=== PATIENT | male | born 1940 | race Caucasian/White ===

== ENCOUNTER 2018-12-28 12:42 | Day surgery (SDC) | payer MEDICARE, OTHER ==
[~2018-12-28] VITALS: Ht 182.9 cm; Wt 95.6 kg
[~2018-12-28 12:42] MED LIST: ASCO500 PO; ASPI81CH PO; ATOR20; ATOR20 PO; B Complete1 EACH; CALCIUM 600 +1 EA11; CEFD300 PO; FISH1000 PO; HYDCHL25 PO; LOSA25 PO; MULTI VITAMIN1 EACH; SM NATURAL BAL100 MG; TOCO1000 PO; Zonegran100 MG PO
== END 2018-12-28 15:25 | disposition home or self-care (01) ==
LOC: ORSCSDS 12:42
PROVIDERS: Internal Medicine Gastroenterology
PROC: 0DBH8ZX Excision of Cecum, Via Natural or Artificial Opening Endoscopic, Diagnostic (ICD-10-PCS; principal; 2018-12-28 14:30)
PROC: 0DBN8ZX Excision of Sigmoid Colon, Via Natural or Artificial Opening Endoscopic, Diagnostic (ICD-10-PCS; principal; 2018-12-28 14:30)
DX: Z12.11 Encounter for screening for malignant neoplasm of colon (principal); D12.5 Benign neoplasm of sigmoid colon; K57.30 Diverticulosis of large intestine without perforation or abscess without bleeding; I10 Essential (primary) hypertension; G20 Parkinson's disease; Z86.010 Personal history of colon polyps; Z80.0 Family history of malignant neoplasm of digestive organs; Z87.891 Personal history of nicotine dependence; Z79.82 Long term (current) use of aspirin; Z79.899 Other long term (current) drug therapy
CPT/HCPCS: 88305; J2704; J7120

== ENCOUNTER → 2019-04-29 | Outpatient (CLI) | payer MEDICARE, OTHER | END | disposition home or self-care (01) | LOC: LAB SHORT 10:29 → PLD 10:29 | DX: D48.5 Neoplasm of uncertain behavior of skin (principal) | CPT/HCPCS: 88305 ==

== ENCOUNTER 2020-08-07 21:41 | Emergency (ER) | payer MEDICARE, OTHER ==
[~2020-08-07] VITALS: Ht 182.9 cm; Wt 108.9 kg
[2020-08-07] MEDS ORDERED: HYDR1TAB94 PO (22:14)
== END 2020-08-07 22:45 | disposition home or self-care (01) ==
LOC: ER 21:41
DX: S22.31XA Fracture of one rib, right side, initial encounter for closed fracture (principal); G20 Parkinson's disease; Z88.2 Allergy status to sulfonamides; Z88.8 Allergy status to other drugs, medicaments and biological substances; Z88.1 Allergy status to other antibiotic agents; Z79.82 Long term (current) use of aspirin; Z87.891 Personal history of nicotine dependence; Z79.899 Other long term (current) drug therapy; W01.0XXS Fall on same level from slipping, tripping and stumbling without subsequent striking against object, sequela
CPT/HCPCS: 71101; 99283-25; A9270

== ENCOUNTER → 2021-01-24 | Outpatient (CLI) | payer MEDICARE, OTHER ==
[~2021-01-24] MED LIST changes: +HYDR1TAB94 PO
== END | disposition home or self-care (01) ==
LOC: LAB 12:23 → LAB SHORT 12:23
DX: S91.109A Unspecified open wound of unspecified toe(s) without damage to nail, initial encounter (principal)
CPT/HCPCS: 87070; 87147; 87205

== ENCOUNTER 2021-02-19 00:54 | Day surgery (SDC) | payer MEDICARE, OTHER | END 2021-02-20 02:24 | disposition home or self-care (01) | LOC: WOUND 00:54 | DX: L89.899 Pressure ulcer of other site, unspecified stage (principal); S91.104D Unspecified open wound of right lesser toe(s) without damage to nail, subsequent encounter; X58.XXXD Exposure to other specified factors, subsequent encounter; I87.2 Venous insufficiency (chronic) (peripheral); I73.9 Peripheral vascular disease, unspecified | CPT/HCPCS: A9270; G0463 ==

== ENCOUNTER 2021-02-26 00:50 | Day surgery (SDC) | payer MEDICARE, OTHER | END 2021-02-26 23:39 | disposition home or self-care (01) | LOC: WOUND 00:50 | DX: L89.892 Pressure ulcer of other site, stage 2 (principal); I87.2 Venous insufficiency (chronic) (peripheral); I73.9 Peripheral vascular disease, unspecified; G20 Parkinson's disease; M79.89 Other specified soft tissue disorders; R93.6 Abnormal findings on diagnostic imaging of limbs | CPT/HCPCS: 93922; A9270; G0463 ==

== ENCOUNTER 2021-03-12 03:39 | Day surgery (SDC) | payer MEDICARE, OTHER | END 2021-03-12 23:00 | disposition home or self-care (01) | LOC: WOUND 03:39 | DX: S91.104D Unspecified open wound of right lesser toe(s) without damage to nail, subsequent encounter (principal); X58.XXXD Exposure to other specified factors, subsequent encounter; L89.899 Pressure ulcer of other site, unspecified stage; I87.2 Venous insufficiency (chronic) (peripheral); I73.9 Peripheral vascular disease, unspecified ==

== ENCOUNTER 2021-03-26 02:43 | Day surgery (SDC) | payer MEDICARE, OTHER | END 2021-03-26 23:48 | disposition home or self-care (01) | LOC: WOUND 02:43 | DX: L89.892 Pressure ulcer of other site, stage 2 (principal); S91.104D Unspecified open wound of right lesser toe(s) without damage to nail, subsequent encounter; X58.XXXD Exposure to other specified factors, subsequent encounter; I87.2 Venous insufficiency (chronic) (peripheral); I73.9 Peripheral vascular disease, unspecified | CPT/HCPCS: G0463 ==

== ENCOUNTER 2021-05-22 08:12 | Inpatient (IN) | payer MEDICARE, OTHER ==
[~2021-05-22] VITALS: Ht 180.3 cm; Wt 102.9 kg
[2021-05-22 08:44] LABS: BASOPHILS ABSOLUTE AUTO 0.01 K/mm3 (0.00-0.23); BASOPHILS PERCENT AUTO 1 % (0-2); Hematocrit 48.6 % (37.0-53.0); Hemoglobin 16.8 g/dL (13.5-17.5); Mean Corpuscular HGB 32.2 pg (26.0-34.0); Mean Corpuscular HGB Conc 34.6 g/dL (31.5-36.5); Mean Corpuscular Volume 93 fL (80-100); Mean Platelet Volume 9.8 fL (9.1-12.4); NEUTROPHILS PERCENT AUTO 48 % (41-73); Platelet Count 194 K/mm3 (150-400); RDW Standard Deviation 51.5 fL (35.1-46.3); Red Blood Cell Count 5.22 M/mm3 (4.30-5.90)
[2021-05-22 08:45] LABS: EOSINOPHILS PERCENT AUTO 0 % (0-6); IMMATURE GRAN ABSOLUTE AUTO 0.01 K/mm3 (0.00-0.10); IMMATURE GRAN PERCENT AUTO 1 % (0-1); LYMPHOCYTES ABSOLUTE AUTO 0.56 K/mm3 (0.84-5.20); LYMPHOCYTES PERCENT AUTO 47 % (21-46); MONOCYTES ABSOLUTE AUTO 0.05 K/mm3 (0.16-1.47); MONOCYTES PERCENT AUTO 4 % (4-13); NEUTROPHILS ABSOLUTE AUTO 0.57 K/mm3 (1.96-9.15)
[2021-05-22 08:51] LABS: PO2 Arterial 50.6 mmHg (80-100); pH Blood Arterial 7.44 (7.35-7.45)
[2021-05-22 09:06] LABS: Albumin, Blood 3.2 g/dL (3.4-5.0); Albumin/Globulin Ratio 0.8 (0.8-1.8); Bilirubin, Total 1.9 mg/dL (0.1-1.0); Bun/Creatinine Ratio 21.9 (12.0-20.0); Calcium, Blood 9.2 mg/dL (8.5-10.1); Creatinine, Blood 2.28 mg/dL (0.60-1.20); Potassium, Blood 3.7 mmol/L (3.5-5.5); Total Protein, Blood 7.2 g/dL (6.4-8.2); Troponin I 0.05 ng/mL (0.000-0.040)
[2021-05-22 09:25] LABS: Chloride (POC) 98 mmol/L (98-108); Creatinine (POC) 2.8 mg/dL (0.8-1.3); Glucose (ISTAT POC) 151 mg/dL (70-99); Potassium (POC) 3.9 mmol/L (3.5-5.5); Sodium (POC) 136 mmol/L (135-148); Total CO2 (POC) 25 mmol/L (21-32)
[2021-05-22 09:44] LABS: BASOPHILS PERCENT MAN 0 % (0-2)
[2021-05-22 09:48] LABS: EOSINOPHILS ABSOLUTE MAN 0.02 K/mm3 (0.00-0.68); EOSINOPHILS PERCENT MAN 2 % (0-6); LYMPHOCYTES ABSOLUTE MAN 0.64 K/mm3 (0.84-5.20); LYMPHOCYTES PERCENT MAN 54 % (21-46); MONOCYTES ABSOLUTE MAN 0.09 K/mm3 (0.16-1.47); MONOCYTES PERCENT MAN 8 % (4-13); SEG NEUTROPHILS PERCENT MAN 36 % (41-73); TOTAL CELLS COUNTED 50
[2021-05-22 09:50] LABS: NEUTROPHILS ABSOLUTE MAN 0.43 K/mm3 (1.96-9.15)
[2021-05-22 10:44] LABS: International Normalized Ratio 1.48; Prothrombin Time Results 15.6 Sec (9.7-11.5)
[2021-05-22 11:10] LABS: SARS-Cov-2 (COVID-19) PCR, MMC NEGATIVE (NEGATIVE)
[2021-05-22] MEDS ORDERED: KLOR-CON 1010 ME4 PO (11:36)
[2021-05-22] MEDS ORDERED: FUROSEMIDE40 MG PO (11:37)
[2021-05-22] MEDS ORDERED: ATORVASTATIN CA20 MG PO (11:37)
[2021-05-22] MEDS ORDERED: LOSARTAN POTASS25 M2 PO (11:37)
[2021-05-22] MEDS ORDERED: BUSPIRONE HCL7.5 M1 PO (11:37)
[2021-05-22] MEDS ORDERED: RYTARY ER 48.71 EAC1 PO (11:38)
[2021-05-22] MEDS ORDERED: Aspir 8181 MG PO (11:38)
[2021-05-22] MEDS ORDERED: Vitamin B Comple1 EA PO (11:38)
[2021-05-22 12:37] LABS: PCO2 Arterial 33.3 mmHg (35-45); pH Blood Arterial 7.41 (7.35-7.45)
[2021-05-22 13:11] LABS: Hematocrit 45.2 % (37.0-53.0); Hemoglobin 15.2 g/dL (13.5-17.5)
[2021-05-22 16:09] LABS: Hematocrit 39.4 % (37.0-53.0); Hemoglobin 13.6 g/dL (13.5-17.5)
[2021-05-22 18:58] LABS: Source, Urine Catheter
[2021-05-22 19:00] LABS: Bilirubin, Urine Neg (Neg); Blood, Urine 4+ (Neg); Glucose Qualitative, Urine 1+ (Neg); Ketones, Urine 1+ (Neg); Leukocyte Esterase, Urine Neg (Neg); Nitrite, Urine Neg (Neg); Protein, Urine 2+ (Neg); Specific Gravity, Urine 1.015 (1.003-1.022); Urobilinogen, Urine NORM (Normal)
[2021-05-22 19:01] LABS: Appearance, Urine Hazy (Clear); Color, Urine Yellow (P-Yellow)
[2021-05-22 19:06] LABS: Amorphous Mod (0-Heavy); Bacteria Few /hpf; Red Blood Cells, Urine 0-2 /hpf (0-2); Squamous Epithelial Cells Few /hpf (Few); White Blood Cells, Urine 0-2 /hpf (0-5)
[2021-05-22 19:07] LABS: Transitional Epithelial Cells Few /hpf (0-Rare)
--- NOTE | 2021-05-22 19:16 | NUR ---
SUMMARY PT INTUBATED AND SEDATED WITH PROPOFOL. PT WILL WITHDRAW FROM NOXIOUS STIMULUS AND MOVES EXTREMITIES WHEN SEDATION IS DOWN. PT HAS COFFEE GROUND FLUID COMING FROM OGT. DR. ISAAC CONSULTED AND WAS IN TO SEE PT WITH AT BEDSIDE. ON PROTONIX GTT AND SANDOSTATIN WAS D/C'D. ON LEVOPHED AND VASOPRESSIN FOR BLOOD PRESSURE SUPPORT. ON AMIO GTT. CONVERTED FROM AFIB THIS AFTERNOON. UPDATED THIS EVENING BY PALLIATIVE CARE RN.
[2021-05-22 22:55] LABS: Hematocrit 38.1 % (37.0-53.0); Hemoglobin 13.1 g/dL (13.5-17.5)
--- NOTE | 2021-05-22 23:45 | NUR ---
DOCTOR CHANCE NOTIFIED OF GRAM - BACILLI IN BLOOD CX, AND OF REPEAT LACTIC 5.3, AND REPEAT H&H. CONTINUE CURRENT ANTIBIOTICS AND GIVE ANOTHER LITER BOLUS OF NS.
[2021-05-23 05:01] LABS: Hematocrit 35.9 % (37.0-53.0)
[2021-05-23 05:33] LABS: Albumin, Blood 2.8 g/dL (3.4-5.0); Anion Gap 11 mmol/L (6-16); Blood Urea Nitrogen 51 mg/dL (8-24); Bun/Creatinine Ratio 30.4 (12.0-20.0); CO2, Blood 24 mmol/L (21-32); Calcium, Blood 7.9 mg/dL (8.5-10.1); Chloride, Blood 105 mmol/L (98-108); Creatinine, Blood 1.68 mg/dL (0.60-1.20); Glomerular Filtration Rate 40 (60-); Glucose, Blood 128 mg/dL (70-99); Phosphorus, Blood 4.8 mg/dL (2.5-4.9); Potassium, Blood 3.6 mmol/L (3.5-5.5); Sodium, Blood 140 mmol/L (136-145); Vancomycin, Random 11.1 ug/mL
--- NOTE | 2021-05-23 06:19 | NUR ---
SUMMARY PATIENT INTUBATED AND SEDATED WITH PROPOFOL 30 MCG. GRIMACE AND COUGH WITH STIMULI, SLIGHT MOVEMENT SEEN IN BOTH FEET, AND HANDS. BILAT WRIST RESTRAINTS IN PLACE TO PREVENT ACCIDENTAL SELF EXTUBATION. LUNG SOUNDS DECREASED IN THE BASES, SCANT AMT OF CLEAR SECRETIONS, ORAL VERY DRY. VENT AC 18, TV 450, PEEP 8, FIO2 40%. OG IN PLACE WITH APROX 100 CC OF DARK COFFEE GROUND LOOKING BILE, NIGHT PROGRESSED LOOKING MORE DARK GREEN. PROTONIX DRIP CONTINUES. NEXT H&H WILL BE DRAWN AT 1000. HYPOTENSION CONTINUES, VASOPRESSIN NOW OFF AND LEVOPHED TITRATED DOWN TO 4 MCG. AMIODARONE CONTINUES 0.5 MG/MIN. MONITOR SHOWING SINUS RHYTHM WITH OCCASIONAL PAC, AND PJC. SLIGHT EDEMA TO LOWER EXTREMITIES.
--- NOTE | 2021-05-23 07:15 | NUR ---
Assumed care of pt at 0700 with Paula PAIZ. Report received from Nila PAIZ. See flow sheet for drip rates and shift assessment for more details.
--- NOTE | 2021-05-23 10:35 | NUR ---
DIRECTOR EPIDEMIOLOGY/FAMILY PRACTICE DOCTOR REFERRAL - ADMIT: 05/22/21 DISCHARGE: DX: SEPSIS, PNEUMONIA, SEPTIC SHOCK CC: ARTIS COVID STATUS/IMMUNIZATION: NEGATIVE TEST 05/22/21 MODERNA: 10/18/20; 11/17/20; 04/27/21 BEAR CALL: AMARILIS [phone] RESIDENCE: HOME WITH SPOUSE CAREGIVER/EMERGENCY CONTACT: AMARILIS FAM, SPOUSE / PARTNER, GUSTAVO REEVES, FAMILY MEMBER, DX: HTN, CONSTIPATION, HYPERLIPIDEMIA, PARKINSON'S, SEE LIST DME: TENS UNIT CCM: NONE HOME HEALTH: NONE SUMMARY: (ADMIT: 05/22/21) 05/23/21- PER CHART REVIEW WITH DR. SEGURA, NO D/C PLAN AT THIS TIME. PT IS INTUBATED AND ON VENT. PT IS IN WRIST RESTRAINTS TO PREVENT SELF-EXTUBATION. DR. ISAAC CONSULTED FOR GI BLEED. HE WILL NOT PURSUE ENDOSCOPIC ASSESSMENT AT THIS TIME BUT WILL WATCH LABS. WANTS PT TO BE A FULL CODE AND "EVERYTHING DONE." PT HAD EPISODE OF AFIB LAST NIGHT AND CARDIOVERSION WAS ATTEMPTED. -KJB
[2021-05-23 11:24] LABS: Hematocrit 34.6 % (37.0-53.0); Hemoglobin 11.9 g/dL (13.5-17.5)
--- NOTE | 2021-05-23 12:00 | NUR ---
Ventilator settings now ACVC 18/450/5/30%. SpO2 90% or greater. Propofol remains at 30 mcg/kg/min. Levophed 6 mcg/min. Vasopressin off. Amiodarone is now off. Protonix drip discontinued.
[2021-05-23 17:09] LABS: Hematocrit 36.2 % (37.0-53.0); Hemoglobin 12.4 g/dL (13.5-17.5)
--- NOTE | 2021-05-23 17:44 | NUR ---
SUMMARY Neuro: Receiving propofol at 25 mcg/kg/min. Responsive to verbal stimulus. Cough and gag present. PERRL. Subtle movement noted to all extremities. Musculoskeletal: Mobility limited by cords, lines, tubes, intubation, and sedation. In bilateral wrist restraints to prevent self-extubation. Respiratory: 8.0 cm ETT remains at 24 cm at teeth placement. Vent settings spontaneous mode with pressure support 7/5 and 30% FiO2. RR 25. Tidal volumes 400-450 mL. SpO2 94%. No sputum suctioned from ETT this shift. Cardiac: SR per monitor. Still requires 6 mcg/min levophed. No edema. Capillary refill less than 3 seconds BUE and BLE. 2+ pulses radial, pedal, and posttibial. Unremarkable heart sounds. Pt has central line to PAJ as well as 3 peripheral IVs. GI: OG tube with feeds and flushes per orders. Normal BT. No signs of abd tenderness with palpation. Protonix drip stopped today. No signs of GI bleed. : Spears catheter in place with excellent output of ping urine. Skin: Unremarkable. Psychosocial: Unable to assess pt due to intubation and sedation. This RN did not have contact with pt's family today. Reportedly updated by palliative RNLise, however. Will continue to closely monitor until care handoff and bedside report with oncoming RN.
--- NOTE | 2021-05-23 18:41 | NUR ---
Echocardiogram completed.
--- NOTE | 2021-05-23 19:45 | NUR ---
DR. GOMEZ NOTIFIED THAT PATIENT CONVERTED BACK TO AFIB WITH RATE 100S TO 130S. PATIENT ON LEVO GTT FOR BLOOD PRESSURE. NO PO MEDICATION WAS ORDERED AFTER AMIO GTT WAS STOPPED THIS MORNING. ORDER TO RESTART AMIO GTT AT .5 AND CONTINUT UNTIL TOLD TO DISCONTINUE.
[2021-05-23 22:23] LABS: Hematocrit 36.8 % (37.0-53.0); Hemoglobin 12.7 g/dL (13.5-17.5)
[2021-05-24 04:57] LABS: Hematocrit 36.3 % (37.0-53.0); Hemoglobin 12.7 g/dL (13.5-17.5); Mean Corpuscular HGB 32.6 pg (26.0-34.0); Mean Corpuscular Volume 93 fL (80-100); Mean Platelet Volume 11.1 fL (9.1-12.4); NRBC ABSOLUTE 0.02 K/mm3 (0.00-0.02); NRBC Auto 0.2 /100 WBC (0.0-0.2); Platelet Count 99 K/mm3 (150-400); RDW Coefficient Variation 15.2 % (11.7-14.2); RDW Standard Deviation 52.3 fL (35.1-46.3); Red Blood Cell Count 3.89 M/mm3 (4.30-5.90)
[2021-05-24 05:20] LABS: Albumin, Blood 2.2 g/dL (3.4-5.0); Anion Gap 7 mmol/L (6-16); Blood Urea Nitrogen 44 mg/dL (8-24); Bun/Creatinine Ratio 39.3 (12.0-20.0); CO2, Blood 25 mmol/L (21-32); Calcium, Blood 8.1 mg/dL (8.5-10.1); Chloride, Blood 110 mmol/L (98-108); Creatinine, Blood 1.12 mg/dL (0.60-1.20); Glomerular Filtration Rate >60 (60-); Glucose, Blood 100 mg/dL (70-99); Magnesium, Blood 2.5 mg/dL (1.6-2.4); Phosphorus, Blood 2.6 mg/dL (2.5-4.9); Potassium, Blood 3.3 mmol/L (3.5-5.5); Sodium, Blood 142 mmol/L (136-145); Vancomycin, Random 9.6 ug/mL
[2021-05-24 05:38] LABS: BAND PERCENT MAN 25 % (0-8); BASOPHILS PERCENT MAN 0 % (0-2); EOSINOPHILS ABSOLUTE MAN 0.58 K/mm3 (0.00-0.68); EOSINOPHILS PERCENT MAN 5 % (0-6); LYMPHOCYTES ABSOLUTE MAN 0.58 K/mm3 (0.84-5.20); LYMPHOCYTES PERCENT MAN 5 % (21-46); METAMYELOCYTE ABSOLUTE MAN 0.11 K/mm3 (0.00-0.00); METAMYELOCYTE PERCENT MAN 1 % (0-0); MONOCYTES ABSOLUTE MAN 0.69 K/mm3 (0.16-1.47); MONOCYTES PERCENT MAN 6 % (4-13); NEUTROPHILS ABSOLUTE MAN 9.62 K/mm3 (1.96-9.15); SEG NEUTROPHILS PERCENT MAN 58 % (41-73); TOTAL CELLS COUNTED 100
--- NOTE | 2021-05-24 07:16 | NUR ---
END OF SHIFT SUMMARY DECREASE PROPOFOL TO 15 DECREASE LEVO GTT TO 3 STARTED VANCOMYCIN PER ORDER FOR INCREASED WBC PATIENT ON SPONTANEOUS BREATHING SETTING ALL SHIFT AND DOING WELL BM X2 (ONE LAST NIGHT AND ONE THIS MORNING) BROWN AND SOFT HEELS AND BACK RED BUT BLANCHABLE. HEEL PROTECTORS ADDED. BATH GIVEN. PLATELETES 99 POTASSIUM 3.3, NO REPLACEMENT PROTOCOL ORDERED. BUN AND CRE IMPROVING. CALCIUM 8.1
--- NOTE | 2021-05-24 08:00 | NUR ---
Assumed care of pt at 0700. Report received from Reshma PAIZ. Pt on spontaneous mode on ventilator with PS 7/5 and 30% FiO2. SpO2 90% or greater. Actual RR 22. Tidal volumes 400-600. Propofol at 15 mcg/kg/min. Plan to stop propofol and assess pt's mentation.
--- NOTE | 2021-05-24 12:00 | NUR ---
Pt has been off propofol since approx 929. Pt is more responsive to stimulus, however does not follow commands or open eyes spontaneously. Coughing is rare and responsive to verbal redirection.
--- NOTE | 2021-05-24 13:00 | NUR ---
per chart review with Dr. Baig, they are going to try and extubate the pt today and wean him off sedation. -sarah bethb
--- NOTE | 2021-05-24 13:40 | NUR ---
Around 1209, pt's SpO2 dropped from 96% to 79%. This RN suctioned copious amount of brown/green/black secretions from ETT. Pt did not recover. 100% FiO2 given. TF turned off. Stat chest xray ordered by charge nurse. Reviewed with Dr Barrett. Pt positioned on right side with HOB elevated in reverse trendelenberg. Vent settings chaned to ACVC 18/450/10/100%. Pt resedated. Received 100 mcg fentanyl and propofol started and titrated up to 50 mcg/kg/min. Levophed titrated up to 7 mcg/min. OG tube placed to LIS per order from Dr Barrett. Pt also had extra large soft bowel movement. Pt cleaned and linens changed. During turning the patient, he has a small amount of brown drainage from mouth. Otherwise, no emesis has been observed from patient. at bedside at this time to visit. She received updates from this RN and from Dr Barrett.
--- NOTE | 2021-05-24 18:23 | NUR ---
SUMMARY Neuro: Receiving propofol at 50 mcg/kg/min. Responsive to verbal stimulus. Cough and gag present. PERRL. Subtle movement noted to all extremities. Musculoskeletal: Mobility limited by cords, lines, tubes, intubation, and sedation. In bilateral wrist restraints to prevent self-extubation. Respiratory: 8.0 cm ETT remains at 24 cm at teeth placement. Vent settings ACVC 18/450/10/70%. actual RR 22. Lungs clear, dim in bases. Large amounts of green/brown/black secretions suctioned from ETT. Cardiac: SR per monitor. Requires 10 mcg/min levophed. Trace edema BUE and BLE. Capillary refill less than 3 seconds BUE and BLE. 2+ pulses radial, pedal, and posttibial. Unremarkable heart sounds. Pt has central line to RIJ as well as 2 peripheral IVs. GI: OG tube to LIS. Holding all per tube input for now. Normal BT. No signs of abd tenderness with palpation. No signs of GI bleed. No additional events of vomiting/nausea since noon today. : Spears catheter in place with excellent output of ping urine. Skin: Unremarkable. Psychosocial: Unable to assess pt due to intubation and sedation. Pt's spouse in to see patient today, recevied update from this RN and from Dr Barrett. Will continue to closely monitor until care handoff and bedside report with oncoming RN.
--- NOTE | 2021-05-24 22:46 | NUR ---
DR. BURTON NOTIFIED THAT PATIENT HAS R FACIAL DROOP. (PATIENT HAD EVENTFUL DAY DURING DAYSHIFT WHERE THE ORIGINAL PLAN WAS TO EXTUBATE BUT THEN PATIENT HAD ASPIRATED. CURRENTLY ON STRICT NPO SO HOLDING ALL PO MEDICATIONS INCLUDING PO ELIQUIS.) EYEBROWS DO FURROW INWARDS EQUALLY WHEN PATIENT IS IN PAIN. AND PUPILS BOTH REACT TO LIGHT ALTHOUGH THEY ARE SMALL. PATIENT SEDATED AND ON LEVO WITH INCREASED RATES DURING DAY SHIFT. DR. BURTON TO ORDER HEAD CT WITHOUT CONTRAST.
--- NOTE | 2021-05-24 23:30 | NUR ---
PATIENT TRANSPORT TO CT AT 2330
[2021-05-25 04:17] LABS: Hematocrit 36.2 % (37.0-53.0); Hemoglobin 12.4 g/dL (13.5-17.5); LYMPHOCYTES ABSOLUTE AUTO 0.71 K/mm3 (0.84-5.20); LYMPHOCYTES PERCENT AUTO 5 % (21-46); MONOCYTES PERCENT AUTO 5 % (4-13); Mean Corpuscular HGB 32.2 pg (26.0-34.0); Mean Corpuscular HGB Conc 34.3 g/dL (31.5-36.5); Mean Corpuscular Volume 94 fL (80-100); Mean Platelet Volume 10.8 fL (9.1-12.4); NRBC ABSOLUTE 0.07 K/mm3 (0.00-0.02); NRBC Auto 0.4 /100 WBC (0.0-0.2); Platelet Count 74 K/mm3 (150-400); RDW Coefficient Variation 15.5 % (11.7-14.2); RDW Standard Deviation 53.9 fL (35.1-46.3); Red Blood Cell Count 3.85 M/mm3 (4.30-5.90); White Blood Cell Count 15.62 K/mm3 (4.00-11.30)
[2021-05-25 04:25] LABS: BASOPHILS ABSOLUTE AUTO 0.01 K/mm3 (0.00-0.23); BASOPHILS PERCENT AUTO 0 % (0-2); EOSINOPHILS ABSOLUTE AUTO 0.52 K/mm3 (0.00-0.68); EOSINOPHILS PERCENT AUTO 3 % (0-6); IMMATURE GRAN ABSOLUTE AUTO 0.07 K/mm3 (0.00-0.10); IMMATURE GRAN PERCENT AUTO 0 % (0-1); NEUTROPHILS ABSOLUTE AUTO 13.61 K/mm3 (1.96-9.15); NEUTROPHILS PERCENT AUTO 87 % (41-73)
[2021-05-25 04:32] LABS: Albumin, Blood 1.9 g/dL (3.4-5.0); Anion Gap 7 mmol/L (6-16); Blood Urea Nitrogen 38 mg/dL (8-24); CO2, Blood 25 mmol/L (21-32); Calcium, Blood 8.1 mg/dL (8.5-10.1); Chloride, Blood 113 mmol/L (98-108); Creatinine, Blood 0.86 mg/dL (0.60-1.20); Glomerular Filtration Rate >60 (60-); Glucose, Blood 94 mg/dL (70-99); Magnesium, Blood 2.5 mg/dL (1.6-2.4); Potassium, Blood 3.1 mmol/L (3.5-5.5); Sodium, Blood 145 mmol/L (136-145)
[2021-05-25 04:47] LABS: BAND PERCENT MAN 23 % (0-8); BASOPHILS PERCENT MAN 0 % (0-2); EOSINOPHILS ABSOLUTE MAN 0.62 K/mm3 (0.00-0.68); EOSINOPHILS PERCENT MAN 4 % (0-6); LYMPHOCYTES % ATYPICAL MANUAL 1 % (0-0); LYMPHOCYTES ABSOLUTE MAN 0.62 K/mm3 (0.84-5.20); LYMPHOCYTES PERCENT MAN 3 % (21-46); METAMYELOCYTE ABSOLUTE MAN 0.31 K/mm3 (0.00-0.00); METAMYELOCYTE PERCENT MAN 2 % (0-0); MONOCYTES ABSOLUTE MAN 0.46 K/mm3 (0.16-1.47); MONOCYTES PERCENT MAN 3 % (4-13); NEUTROPHILS ABSOLUTE MAN 13.58 K/mm3 (1.96-9.15); SEG NEUTROPHILS PERCENT MAN 64 % (41-73); TOTAL CELLS COUNTED 100
--- NOTE | 2021-05-25 06:17 | NUR ---
END OF SHIFT SUMMARY NOTE: PATIENT SENT TO CT TO R/O CVA D/T DROOPING OF R SIDE OF MOUTH. (NEG FOR ACUTE) CARDIZEM GTT OFF FOR HR < 120. AFIB CONTROLLED. LEVO GTT DECREASED AND DOWN TO 2. PROPOFOL GTT TITRATED WHEN APPROPRIATE. TOLERATING VENTILATOR. DARK/GREEN INLINE SECRETIONS DECREASED THROUGHOUT SHIFT. INLINE SECRETIONS NOW SMITH YELLOW AND THICK.
--- NOTE | 2021-05-25 07:15 | NUR ---
Assumed care of pt at 0700. Report received from Reshma PAIZ. Drips: 35 mcg/kg/min propofol 2 mcg/min levophed 100 mL/hr NS Vent: ACVC 18/450/10/30%. SpO2 96% ETT: 8.0 cm, 24 cm at teeth.
--- NOTE | 2021-05-25 08:17 | NUR ---
UPDATE Propofol decreased to 25 mcg/min. Pt tolerating vent well. Vent settings changed by RT. Now ACVC 18/450/5/30%. SpO2 93%. Pt tolerating laying on left side well.
--- NOTE | 2021-05-25 19:15 | NUR ---
Assumed care. Report recieved from lamberto PAIZ. Pt in bed on ventilator. Vent settings: Spont 8/, 40%. OG tube in place, connected to low intermittent suction. Pt has R/IJ central line, R/AC and R/foream IV access. Pump settings: NS at 100 ml/hr, NS at 10 ml/hr. Spears catheter in place, draining ping urine. No acute needs noted at this time, will continue to monitor.
--- NOTE | 2021-05-25 19:17 | NUR ---
SUMMARY Neuro: Propofol off since late this morning. Pt opens eyes to verbal stimulus. Follows simple commands. Does not move or interact in absence of stimlulation. Does not attempt to pull at restraints. Musculoskeletal: Mobility limited by cords, lines, tubes, intubation. In bilateral wrist restraints to prevent self-extubation. Respiratory: 8.0 cm ETT remains at 24 cm at teeth placement. Vent settings spontaneous mode with pressure support 8/5 and 40% FiO2. Actual RR 22. Tidal volumes 500-600 mL. SpO2 90% or greater. Lungs clear, dim in bases. Large amounts of eaton secretions suctioned from ETT. Cardiac: SR per monitor. Levophed off. Trace edema BUE and BLE. Capillary refill less than 3 seconds BUE and BLE. 2+ pulses radial, pedal, and posttibial. Unremarkable heart sounds. Pt has central line to RIJ as well as 2 peripheral IVs. GI: OG tube to LIS. Holding all per tube input for now. Normal BT. No signs of abd tenderness with palpation. No signs of GI bleed. No additional events of vomiting/nausea since noon yesterday. : Spears catheter in place with excellent output of ping urine. Skin: Unremarkable. Psychosocial: Unable to assess pt due to intubation. Pt's spouse in to see patient today, recevied update from this RN and from Dr Kramer. Will continue to closely monitor until care handoff and bedside report with oncoming RN.
[2021-05-26 03:44] LABS: BASOPHILS ABSOLUTE AUTO 0.04 K/mm3 (0.00-0.23); BASOPHILS PERCENT AUTO 0 % (0-2); Hematocrit 36.5 % (37.0-53.0); Hemoglobin 12.7 g/dL (13.5-17.5); LYMPHOCYTES ABSOLUTE AUTO 0.87 K/mm3 (0.84-5.20); LYMPHOCYTES PERCENT AUTO 7 % (21-46); MONOCYTES ABSOLUTE AUTO 0.92 K/mm3 (0.16-1.47); MONOCYTES PERCENT AUTO 8 % (4-13); Mean Corpuscular HGB 32.1 pg (26.0-34.0); Mean Corpuscular HGB Conc 34.8 g/dL (31.5-36.5); Mean Corpuscular Volume 92 fL (80-100); Mean Platelet Volume 11.5 fL (9.1-12.4); NRBC ABSOLUTE 0.15 K/mm3 (0.00-0.02); NRBC Auto 1.3 /100 WBC (0.0-0.2); Platelet Count 70 K/mm3 (150-400); RDW Coefficient Variation 15.2 % (11.7-14.2); Red Blood Cell Count 3.96 M/mm3 (4.30-5.90); White Blood Cell Count 11.97 K/mm3 (4.00-11.30)
[2021-05-26 03:52] LABS: EOSINOPHILS ABSOLUTE AUTO 0.13 K/mm3 (0.00-0.68); EOSINOPHILS PERCENT AUTO 1 % (0-6); IMMATURE GRAN ABSOLUTE AUTO 0.09 K/mm3 (0.00-0.10); IMMATURE GRAN PERCENT AUTO 1 % (0-1); NEUTROPHILS ABSOLUTE AUTO 9.92 K/mm3 (1.96-9.15); NEUTROPHILS PERCENT AUTO 83 % (41-73)
[2021-05-26 04:07] LABS: Anion Gap 7 mmol/L (6-16); Blood Urea Nitrogen 32 mg/dL (8-24); Bun/Creatinine Ratio 40.4 (12.0-20.0); CO2, Blood 24 mmol/L (21-32); Calcium, Blood 8.2 mg/dL (8.5-10.1); Chloride, Blood 115 mmol/L (98-108); Creatinine, Blood 0.79 mg/dL (0.60-1.20); Glomerular Filtration Rate >60 (60-); Glucose, Blood 82 mg/dL (70-99); Phosphorus, Blood 2.5 mg/dL (2.5-4.9); Potassium, Blood 3.3 mmol/L (3.5-5.5); Sodium, Blood 146 mmol/L (136-145)
--- NOTE | 2021-05-26 06:08 | NUR ---
Shift summary. Pt continues in bed, on ventilator. Vent settings: Spont 8/5, 40% Fi02. OG tube to low intermittent suction. R/IJ central line in place, NS running at 100 ml/hr. Spears catheter in place, draining ping urine. Pt rested quietly throughout shift, see shift assessment for details. Will continue to monitor and report off to dayshift RN.
--- NOTE | 2021-05-26 11:15 | NUR ---
Brief update provided to from EMR. Mrs Valenzuela plans to come in again durring designated visiting hours of 1-3 pm today.
--- NOTE | 2021-05-26 16:42 | NUR ---
Initial [facility] visit made & met with per Dr Kramer's request and order received for second referral for [facility]. PC dept RNs had been updating daily by phone earlier in the week thru this am when I spoke to Camryn by phone. After Camryn's visit, we met in ICU waiting room. Camryn expressed disappointment that even though Brad has been off of sedation for the past day, he is not waking up and not able to respond/follow any commands for her. We reviewed his PLOF and quality of life prior to his episode of N/V and aspiration that precipitated this admission. states that Parkinson's has robbed him of much of his joys over the past 3.5 years. He was an active golfer and fitness was a big part of his life. He loved to tell jokes, socialize, eat well, all of which he has not been able to do in recent years. He sometimes does not recognize her and she notes growing signs of dementia along with the parkinson's neuro deficits. We discussed goals of care and code status. Camryn welcomed the conversation and asked for input. She states she's been thinking a lot about this even prior to this acute illness and ICU stay. She verbalized understanding of why pt is not able to be weaned and extubated from the ventilator at this time after talking with Dr Kramer. She does not want CPR performed if he experiences a decline or cardiac arrest. She asked good questions about comfort care and I gave her reading materials re: comfort care and advanced care planning. Dr and ICU staff updated on my visit. Camryn is going to discuss our conversation with her son who is staying at their house currently and we agreed to talk again tomorrow and see what the next 24 hours brings. VO obtained for DNR and entered. After meeting with I visited pt. He is ventilated, unresponsive to voice or touch. He does not appear to be in pain or distress.
--- NOTE | 2021-05-26 17:59 | NUR ---
The patient remains on the ventilator with no sedation. Ventilator settings are SBT mode with a pressure support of 8, 40% FiO2, and PEEP: 10. The patient is in a. fib on the heart monitor and prehypertensive towards the end of the shift. Tube feeds were restarted at trickle rate of 10mLs per hour. No bowel movement today. Spears, right IJ central line, and OG tube are intact. The patient intermittently follows commands, though is mostly lethargic. The patient is not showing signs of distress
--- NOTE | 2021-05-26 19:10 | NUR ---
Assumed Care. Report recieved from lamberto RN. Pt resting quietly in bed. Ventilator setting: Spont 04/10, 30% Fi02. OG tube in place, running pivot 1.5 at 10 ml/hr. R/IJ central line in place. Maintenance IV fluids DC'd. Spears catheter in place, draining ping urine. No acute needs noted at this time, will continue to monitor.
[2021-05-27 03:48] LABS: BASOPHILS ABSOLUTE AUTO 0.05 K/mm3 (0.00-0.23); BASOPHILS PERCENT AUTO 0 % (0-2); EOSINOPHILS ABSOLUTE AUTO 0.11 K/mm3 (0.00-0.68); EOSINOPHILS PERCENT AUTO 1 % (0-6); Hematocrit 39.2 % (37.0-53.0); Hemoglobin 13.6 g/dL (13.5-17.5); IMMATURE GRAN ABSOLUTE AUTO 0.09 K/mm3 (0.00-0.10); IMMATURE GRAN PERCENT AUTO 1 % (0-1); LYMPHOCYTES ABSOLUTE AUTO 1.12 K/mm3 (0.84-5.20); LYMPHOCYTES PERCENT AUTO 10 % (21-46); MONOCYTES ABSOLUTE AUTO 1.02 K/mm3 (0.16-1.47); MONOCYTES PERCENT AUTO 9 % (4-13); Mean Corpuscular HGB 32.1 pg (26.0-34.0); Mean Corpuscular HGB Conc 34.7 g/dL (31.5-36.5); Mean Corpuscular Volume 93 fL (80-100); Mean Platelet Volume 11.3 fL (9.1-12.4); NEUTROPHILS ABSOLUTE AUTO 9.11 K/mm3 (1.96-9.15); NEUTROPHILS PERCENT AUTO 79 % (41-73); NRBC ABSOLUTE 0.06 K/mm3 (0.00-0.02); NRBC Auto 0.5 /100 WBC (0.0-0.2); Platelet Count 113 K/mm3 (150-400); RDW Standard Deviation 50.8 fL (35.1-46.3); Red Blood Cell Count 4.24 M/mm3 (4.30-5.90)
[2021-05-27 03:55] LABS: Anion Gap 5 mmol/L (6-16); Blood Urea Nitrogen 37 mg/dL (8-24); Bun/Creatinine Ratio 45.4 (12.0-20.0); CO2, Blood 25 mmol/L (21-32); Calcium, Blood 8.1 mg/dL (8.5-10.1); Chloride, Blood 119 mmol/L (98-108); Creatinine, Blood 0.82 mg/dL (0.60-1.20); Glomerular Filtration Rate >60 (60-); Glucose, Blood 116 mg/dL (70-99); Magnesium, Blood 2.2 mg/dL (1.6-2.4); Phosphorus, Blood 2.6 mg/dL (2.5-4.9); Potassium, Blood 3.6 mmol/L (3.5-5.5); Sodium, Blood 149 mmol/L (136-145)
--- NOTE | 2021-05-27 06:09 | NUR ---
Shift summary. Pt continues in bed on ventilator. Vent settings: Spont 8, 30 % Fi02, copious thick secretions suctioned throughout shift. OG tube in place, tube feed running at 10 ml/hr. R/IJ central line in place. Spears catheter in place, draining ping urine. Vital signs trending towards hypetension, order recieved from Dr. Vale for hydralazine PRN. Vitals stable throughout shift, will continue to monitor and report off to dayshift RN.
--- NOTE | 2021-05-27 11:22 | NUR ---
Case conference with ICU staff and Travis Baig and Williams this am. T/c to , Camryn and VM left requesting call back to provide an update to her as she requested. Visit to pt. He does not appear comfortable. He has furrowed brow and frown, tightly closed eyes at times. His neuro status is unchanged. Requiring minimal resp support but not awake enough to protect airway, cough, clear, follow commands, per . This is also unchanged in the past 24 hours. Will review and discuss goals of care, answer Camryn's questions as I am able when she comes in to visit or returns my call.
--- NOTE | 2021-05-27 13:30 | NUR ---
, Camryn, returned call. She would like to meet again after her visit today. If possible she wants to take Brad home with hospice support. We discussed the process and need for pt to be stable with s/s and no risk of demise in transport. agrees with this. Updated pt's RN, who will page me when Camryn is ready to meet. I updated Dr Baig and VO for hospice on d/c obtained for tentative d/c planning with that goal. This will depend on how pt tolerates extubation and 24 hours of comfort care assessment. verbalized good understanding of this.
--- NOTE | 2021-05-27 18:34 | NUR ---
PLAN for Comfort care and extubation on Friday afternoon: Summary of conversations with -jose Cowan-Nila by phone, Travis Kramer and Jovanni this afternoon. would like for pt to come home on hospice if possible. Plan made with Travis to remove ventilator tomorrow afternoon after family has arrived from out of state to be with pt afterwards and while in hospital on comfort care. Comfort care orders will be placed prior to extubation in prep for 24 hours of assessment and planning for transfer home with [facility] hospice if possible on Friday. is agreeable to other agencies if [facility] is not available and they can provide same day admission on Friday. Pt/ live out [facility]. will have help available. She is [employer] and frequently needs staff to repeat communication. is aware that if pt is in respiratory failure or progressing in the dying process quickly, that he may not be able to leave the hospital. Family informed that four members could visit each day and remain at bedside if desired. At least four family members will be here tomorrow prior to and after extubation. They will step out of ICU during extubation. Pt is breathing spontaneously but not waking up after three days without sedation. He appears uncomfortable with deeply furroughed brow and grimacing noted. He is unresponsive to staff and . He occassionally opens eyes per staff but I did not witness this. wants to support pt's expressed AD wishes for no life support or tube feedings. Pt's , jose, granddaughter and 's son plan to be here by 2-3pm tomorrow. 's request communicated to Dr Kramer and Dr Baig. Dr Baig will communicate plan with oncoming M for Friday. Pt has noted secretions in upper airway. VO obtained and entered for scopolomine patch to start today. Hospice order obtained and entered and CM left for assist with tentative DC plan to home with hospice on Friday if pt/hospice able to do that. and daughter expressed appreciation and gratitude for the care Brad has received & for the support through their decision making from Drs Palliative Care and nursing staff.
--- NOTE | 2021-05-27 18:36 | NUR ---
The patient remains on the the ventialtor with a setting of 8/10 on spontaneous mode. All sedation has been off for the past 3 days. The patient remains lethargic, though follows commands upon awakening from stimulation. Tube feeds continue to infuse. Central line, OG tube, and stevens remain intact. ET tube suctioning displays a large amount of thick, eaton secretions
--- NOTE | 2021-05-27 19:10 | NUR ---
Assumed care. Report recieved by lamberto PAIZ. Patient continues on ventilator in bed. Vent settings: Spont 04/10, 30% Fi02. OG tube in place, tube feed running at 10ml/hr. R/IJ central line in place, no fluids or meds infusing at this time. Spears catheter in place, draining ping urine. No acute needs noted, will continue to monitor.
[2021-05-28 03:33] LABS: Hematocrit 39.6 % (37.0-53.0); Hemoglobin 13.6 g/dL (13.5-17.5); Mean Corpuscular HGB 31.9 pg (26.0-34.0); Mean Corpuscular HGB Conc 34.3 g/dL (31.5-36.5); Mean Corpuscular Volume 93 fL (80-100); Mean Platelet Volume 11.2 fL (9.1-12.4); Platelet Count 160 K/mm3 (150-400); RDW Coefficient Variation 15.2 % (11.7-14.2); RDW Standard Deviation 52.4 fL (35.1-46.3); Red Blood Cell Count 4.26 M/mm3 (4.30-5.90); White Blood Cell Count 10.03 K/mm3 (4.00-11.30)
[2021-05-28 03:51] LABS: Anion Gap 2 mmol/L (6-16); Blood Urea Nitrogen 37 mg/dL (8-24); Bun/Creatinine Ratio 50.8 (12.0-20.0); CO2, Blood 27 mmol/L (21-32); Calcium, Blood 8.2 mg/dL (8.5-10.1); Chloride, Blood 121 mmol/L (98-108); Creatinine, Blood 0.73 mg/dL (0.60-1.20); Glomerular Filtration Rate >60 (60-); Glucose, Blood 116 mg/dL (70-99); Magnesium, Blood 2.2 mg/dL (1.6-2.4); Phosphorus, Blood 2.8 mg/dL (2.5-4.9); Potassium, Blood 3.6 mmol/L (3.5-5.5); Sodium, Blood 150 mmol/L (136-145)
[2021-05-28 05:46] LABS: BAND PERCENT MAN 6 % (0-8); BASOPHILS PERCENT MAN 0 % (0-2); EOSINOPHILS PERCENT MAN 0 % (0-6); LYMPHOCYTES PERCENT MAN 10 % (21-46); MONOCYTES PERCENT MAN 7 % (4-13); NEUTROPHILS ABSOLUTE MAN 8.32 K/mm3 (1.96-9.15); SEG NEUTROPHILS PERCENT MAN 77 % (41-73); TOTAL CELLS COUNTED 100
--- NOTE | 2021-05-28 06:17 | NUR ---
Shift summary. Pt continues in bed on ventilator. Pt still A&Ox0 with no sedation. Ventilator settings: Spont 04/10, 30% Fi02. OG tube in place, tube feed running at 10 ml/hr. R/IJ central line in place, no fluids/meds infusing. Spears catheter in place, draining ping urine. Will continue to monitor and report off to dayshift RN.
--- NOTE | 2021-05-28 14:23 | NUR ---
Pt visit, case conference with Drs, RT & RN. Plan remains for initiation of comfort care this afternoon and extubation after family has arrived around 3pm. Orders entered per VO. Plan to be available for support. CM updated this am on plan for dc home with hospice tomorrow also. Pt remains unresponsive and off sedation. It is anticipated that he will be able to breathe on his own after extubation but not be alert enough for PO intake or protection of airway. Family has decided against feeding tube or cont ventilatory support. also requested d/c of IV tx, antibiotics and all tx other than medications for comfort.
--- NOTE | 2021-05-28 15:00 | NUR ---
Bedside visit with family, jose-Nila and -Camryn. They are waiting for additional family memebers to arrive shortly. Both expressed appreciation for support and care from [facility]. Time spent listening and learning about pt and life review between jose and . Answered their questions re: hospice plan and let them know [facility] is working on d/c plan for tomorrow if able. Later called to let them know Roxie of [facility] would meet with them around 4:15 today. Discussed comfort care orders with RN and plan of care, recommendations for medications prior to extubation. Also discussed all of above with primer charger and Hospice.
--- NOTE | 2021-05-28 16:04 | NUR ---
Patient is being extubated when I enter rm and family enter shortly after. I provide anticipatory grief support and end of life prayer. family respond well and show signs of being comforted.
--- NOTE | 2021-05-28 16:55 | NUR ---
per Dr. Kim, pt's family has decided on comfort care and would like the pt to go home with [facility]. Family flying in today and pt will tentatively d/c tomorrow.. ([email or web address], 4:54 PM)
--- NOTE | 2021-05-28 19:22 | NUR ---
The patient has been compassionately extubated per family member's request. Mr Valenzuela is now wearing an oxygen face mask at 14L and 40% FiO2. He is not showing signs of distress. Reviewed comfort measures orders with the oncoming manager night nurse.
--- NOTE | 2021-05-28 19:23 | NUR ---
ASSUMED CARE @1900 PATIENT APPEARS TO BE RESTING COMFORTABLY. 02 SATS 95% ON 14L WITH A FACE MASK. SHER DRAINING JOSUE URINE. HR A.FIB 80s-90s. FAMILY REQUESTED BLOOD PRESSURE NOT BE TAKEN PER REPORT. PATIENT REPOSITIONED AND MEDICATED PER EMAR FOR COMOFORT.
--- NOTE | 2021-05-28 23:34 | NUR ---
PATIENT FAMILY IN ROOM FOR APPROX 1 HOUR THEN LEFT. PATIENT STARTED TO APPEAR AGITATED AND 02 SATS DROPPED, INCREASED TO 15L 02 VIA MASK AND MEDICATED PER EMAR. REPOSITIONED PATIENT AND SUCTIONED SECRETIONS FROM MOUTH.
--- NOTE | 2021-05-29 02:35 | NUR ---
PATIENT APPEARS RELAXED. 02 SATS 91% ON VENTI MASK WITH 15L @45%. MOTH SUCTIONED. REPOSTIONED. RESTING COMFORTABLY. SHER DRAINING JOSUE URINE
--- NOTE | 2021-05-29 03:47 | NUR ---
TRANSFER NOTE/SHIFT SUMMARY HANDOFF RECEIVED FROM CARE WORKER BELINDA. PT TRANSFERED TO FLOOR VIA GURNEY. COMFORT CARE IN PLACE. O2 IN PLACE ORDERED. RIGHT IJ IV IS IN PLACE, CHARGE INFORMED. SHER IN PLACE. PERSONAL POSSESSIONS WITH PT. PLAN IS FOR DC HOME W/HOSPICE TODAY
--- NOTE | 2021-05-29 04:24 | NUR ---
REPORT GIVEN TO MARCI PAIZ, PATIENT TRANSFERRED TO ROOM 351 VIA BED @0320.
[2021-05-29] MEDS ORDERED: Acetaminophen650 M1 PR (08:54)
[2021-05-29] MEDS ORDERED: BISA10S PR (08:56)
[2021-05-29] MEDS ORDERED: Ativan1 MG SL (08:57)
[2021-05-29] MEDS ORDERED: MORP20L SL (09:01)
[2021-05-29] MEDS ORDERED: PHENERGAN25 MG PR (09:02)
[2021-05-29] MEDS ORDERED: TRANSDERM-SCOP1 EAC1 TD (09:02)
--- NOTE | 2021-05-29 10:05 | NUR ---
Comfort care visit and assessment. Pt with labored resp rate of 40/min and clear nonverbal indicators of pain. Spoke with RN who will medicate now prior transport home to hospice with same day admission. Pt with rebreather mask on. Spoke to RN re: changing over to ut and providing oral care prior to transport.
--- NOTE | 2021-05-29 10:35 | NUR ---
PT WAS WARM, REMOVED BLANKET AND WIPED FACE OF SECRETION
--- NOTE | 2021-05-29 10:41 | NUR ---
PATIENT DISCHARGED HOME AT 1030
== END 2021-05-29 10:30 | disposition hospice, home (50) | DRG 870 ==
LOC: ER 08:12 → ICUW 11:00 → ICUE 11:00 → MEDS 05-29 03:24
PROVIDERS: Emergency Medicine; Family Medicine; Internal Medicine Critical Care Medicine; ADMIT Family Medicine
PROC: 0BH18EZ Insertion of Endotracheal Airway into Trachea, Via Natural or Artificial Opening Endoscopic (ICD-10-PCS; principal; 2021-05-22)
PROC: 5A1955Z Respiratory Ventilation, Greater than 96 Consecutive Hours (ICD-10-PCS; 2021-05-22)
PROC: 3E033XZ Introduction of Vasopressor into Peripheral Vein, Percutaneous Approach (ICD-10-PCS; 2021-05-22)
PROC: 5A09457 Assistance with Respiratory Ventilation, 24-96 Consecutive Hours, Continuous Positive Airway Pressure (ICD-10-PCS; 2021-05-22)
PROC: 02HV33Z Insertion of Infusion Device into Superior Vena Cava, Percutaneous Approach (ICD-10-PCS; 2021-05-22)
DX: A41.51 Sepsis due to Escherichia coli [E. coli] (principal); J18.9 Pneumonia, unspecified organism; R65.21 Severe sepsis with septic shock; J96.01 Acute respiratory failure with hypoxia; K22.6 Gastro-esophageal laceration-hemorrhage syndrome; J69.0 Pneumonitis due to inhalation of food and vomit; N17.9 Acute kidney failure, unspecified; Z51.5 Encounter for palliative care; R40.4 Transient alteration of awareness; E87.6 Hypokalemia; Z20.822 Contact with and (suspected) exposure to COVID-19; E78.5 Hyperlipidemia, unspecified; I48.91 Unspecified atrial fibrillation; I10 Essential (primary) hypertension; G20 Parkinson's disease; F02.80 Dementia in other diseases classified elsewhere, unspecified severity, without behavioral disturbance, psychotic disturbance, mood disturbance, and anxiety; Z87.891 Personal history of nicotine dependence; Z98.890 Other specified postprocedural states; Z85.46 Personal history of malignant neoplasm of prostate; Z90.79 Acquired absence of other genital organ(s); Z98.2 Presence of cerebrospinal fluid drainage device; Z79.899 Other long term (current) drug therapy
CPT/HCPCS: 31500; 36415; 36556; 36600; 51702; 70450; 71045; 71260; 80047; 80048; 80053; 80069; 80202; 81001; 82272; 82330; 82803; 82947; 83605; 83735; 83880; 84100; 84132; 84484; 85014; 85018; 85025; 85610; 85730; 86850; 86900; 86901; 87040; 87070; 87077; 87186; 87205; 92960; 93005; 93010; 93306; 94002; 94003; 94660; 96365-59; 96366-59; 96367-59; 96368; 96375-59; 99291-25; 99292; A9270; C1751; C9113; J0282; J0330; J0696; J1650; J2060; J2354; J2704; J2930; J3010; J3370; J3475; J3480; J7030; J7040; J7050; J7060; P9046; Q9967; U0004